=== PATIENT | male | born 1950 | race Caucasian/White ===

== ENCOUNTER 2019-08-26 17:19 | Emergency (ER) | payer MEDICARE, MEDICAID, SELFPAY ==
--- NOTE | ~2019-08-26 | XR_ITS ---
XR femur LT min 2V 08/26/2019 18:05 INDICATION: Left leg pain PROCEDURE: 2 views left femur COMPARISON: No prior studies for comparison. FINDINGS: Fracture, dislocation or subluxation is not identified. The soft tissues appear within norm al limits. No foreign bodies are identified. IMPRESSION: 1: NO ACUTE BONE OR JOINT ABNORMALITY IDENTIFIED. Reviewed, dictated and finalized at location A.
[2019-08-26 17:21] VITALS: BP 145/74; PULSE 88; RESP 18; TEMP 36; O2SAT 99
--- NOTE | 2019-08-26 17:38 | ED.EXTPRO ---
HPI - Extremity Problem General Chief complaint: Extremity Problem,Nontraumatic Stated complaint: knot on left leg Time Seen by Provider: 08/26/19 17:26 Source: patient Mode of arrival: ambulatory Limitations: no limitations History of Present Illness HPI Narrative: This is a 69 year old male that presents to the ER for left leg cramping x 3 days. Reports intermittent cramping and pain in his left thigh. No known injury or trauma. Pain is worse with certain movement. Relieved with rest and stretching. Denies fever, erythema or edema. Related Data Allergies Allergy/AdvReac Type Severity Reaction Status Date / Time No Known Allergies Allergy Verified 07/11/19 13:47 Review of Systems Review of Systems: Narrative: CONSTITUTIONAL: Denies fever SKIN: Denies rash MUSCULOSKELETAL: Reports myalgia. NEUROLOGIC: Denies numbness All systems reviewed & are unremarkable except as noted in HPI and below PMFSH Past Medical History Medical History (Updated 08/26/19 @ 18:20 by Albertina Quintanilla PA-C) No significant past medical history Surgical History Surgical History (Updated 07/11/19 @ 14:34 by Hima Bower) No significant past surgical history Social History Social History (Updated 07/11/19 @ 14:34 by Hima Bower) Smoking status: Never smoker Gender identity (if verbalized by the patient): Male Exam Narrative: Exam Narrative: GENERAL: Well-appearing, well-nourished, and in no acute distress. HEAD: Normocephalic, atraumatic. EYES: EOMI. EXTREMITIES: Normal range of motion. No edema, erythema or warmth. Normal DP pulses SKIN: Warm, dry, no rash. NEURO: No focal deficits. Alert and oriented x3. PSYCH: Normal mood and affect Course Vital Signs Vital signs: Vital Signs Temperature 96.8 F L 08/26/19 17:21 Pulse Rate 88 08/26/19 17:21 Respiratory Rate 18 08/26/19 17:21 Blood Pressure 145/74 H 08/26/19 17:21 Pulse Oximetry 99 08/26/19 17:21 Temperature 96.8 F L 08/26/19 17:21 Pulse Rate 88 08/26/19 17:21 Respiratory Rate 18 08/26/19 17:21 Blood Pressure 145/74 H 08/26/19 17:21 Pulse Oximetry 99 08/26/19 17:21 MDM - Extremity (Nontraumatic) MDM Narrative Medical decision making narrative: Patient presents to the ER for left thigh pain/cramping x 3 days. He is afebrile and nontoxic appearing. No edema, erythema or warmth of the leg. CBC and metabolic panel are normal. Left femur XR is normal. Patient was instructed to rest, use heat, and take over the counter pain medication as needed. He is to follow up with his PCP. Patient was given warnings to return to the ER Lab Data Attestation: I reviewed the patient's lab results. Result diagrams: 08/26/19 17:52 08/26/19 17:52 Labs: Lab Results 08/26/19 08/26/19 Range/Units 17:52 17:52 WBC 7.3 (4.5-10.0) K/mm3 RBC 4.66 (4.6-6.20) M/mm3 Hgb 14.5 (14.0-18.0) g/dL Hct 44.5 (42.0-52.0) % MCV 95.5 (80-100) fl MCH 31.1 (26-34) pg MCHC 32.6 (32-36) g/dl RDW 13.1 (11.5-14.5) % Plt Count 361 (150-375) k/mm3 MPV 10.3 (7.4-10.4) fl Immature Gran % (Auto) 0.3 (0-0.5) % Neut % (Auto) 50.9 (45.5-73.1) % Lymph % (Auto) 38.5 (18.3-44.2) % [place] % (Auto) 7.1 (2.6-8.5) % Eos % (Auto) 2.2 (0-4.4) % Baso % (Auto) 1.0 (0.2-1.2) % Lymph # (Auto) 2.80 (0.9-3.2) K/mm3 [place] # (Auto) 0.5 (0.1-0.6) K/mm3 Eos # (Auto) 0.2 (0-0.3) K/mm3 Baso # (Auto) 0.1 (0.0-0.1) K/mm3 Abs Immat Gran (auto) 0.02 (0.00-0.031) K/mm3 Absolute Neuts (auto) 3.7 (1.3-6.7) K/mm3 Absolute Nucleated RBC 0.0 (0.0-0.012) K/mm3 Nucleated RBC % 0.0 (0.0-0.2) % Sodium 138 (137-145) mmol/L Potassium 3.7 (3.4-5.0) mmol/L Chloride 101 (98-107) mmol/L Carbon Dioxide 29 (22-30) mmol/L BUN 17 (9-20) mg/dL Creatinine 0.90 (0.7-1.3) mg/dL Estim Creat Clear Calc Not Reportable Estimated GFR > 60 (59 - ) Glucose 81 (75-110) m
[2019-08-26 18:01] LABS: Basophils Absolute Auto 0.1 K/mm3 (0.0-0.1); Eosinophils Absolute Auto 0.2 K/mm3 (0-0.3); Eosinophils Percent Auto 2.2 % (0-4.4); Hematocrit 44.5 % (42.0-52.0); Hemoglobin 14.5 g/dL (14.0-18.0); Immature Granulocyte Absolute 0.02 K/mm3 (0.00-0.031); Immature Granulocyte Percent A 0.3 % (0-0.5); Lymphocytes Percent Auto 38.5 % (18.3-44.2); Mean Corpuscular HGB Conc 32.6 g/dl (32-36); Mean Corpuscular Hemoglobin 31.1 pg (26-34); Mean Corpuscular Volume 95.5 fl (80-100); Mean Platelet Volume 10.3 fl (7.4-10.4); Monocytes Absolute Auto 0.5 K/mm3 (0.1-0.6); Monocytes Percent Auto 7.1 % (2.6-8.5); Neutrophils Absolute Auto 3.7 K/mm3 (1.3-6.7); Neutrophils Percent Auto 50.9 % (45.5-73.1); Platelet Count Result 361 k/mm3 (150-375); Red Blood Count 4.66 M/mm3 (4.6-6.20); Red Cell Distribution Width 13.1 % (11.5-14.5); White Blood Count 7.3 K/mm3 (4.5-10.0)
[2019-08-26 18:08] LABS: Blood Urea Nitrogen 17 mg/dL (9-20); Carbon Dioxide 29 mmol/L (22-30); Chloride 101 mmol/L (98-107); Estimated Glomerular Filt Rate > 60; Glucose 81 mg/dL (75-110); Potassium 3.7 mmol/L (3.4-5.0); Sodium 138 mmol/L (137-145)
[2019-08-26 18:44] VITALS: BP 143/79; PULSE 76; RESP 19; TEMP 36.2; O2SAT 100
== END 2019-08-26 18:50 | disposition home or self-care (01) ==
LOC: ANHED 18:28
PROVIDERS: Physician Assistant; Emergency Provider Emergency Medicine
DX: M79.652 Pain in left thigh (principal)
CPT/HCPCS: 36415; 73552; 80048; 85025; 99283

== ENCOUNTER 2020-08-15 15:22 | Emergency (ER) | payer MEDICARE, MEDICAID, SELFPAY ==
[2020-08-15 15:46] VITALS: BP 134/81; PULSE 102; RESP 18; TEMP 36.6; O2SAT 99
[2020-08-15 15:48] VITALS: BP 134/81; PULSE 102; RESP 18; TEMP 36.6; O2SAT 99
--- NOTE | 2020-08-15 16:03 | ED.SKABFB ---
HPI - Skin/Abscess/Foreign Bdy General Chief complaint: Skin/Abscess/Foreign Body Stated complaint: gential rash Source: patient and RN notes reviewed Limitations: no limitations History of Present Illness HPI narrative: The circumcised patient, who is a nondrinker/non-smoker on no meds?yet without a doctor, presents with skin eruption. Patient states he is not sexually active and has a shorter '1 to 2-day' history of pink, only slightly painful, itchy rash on his privates . No fever, dysuria, prior/other rashes; symptoms are moderate to severe seem to begin on the distal, circumsized shaft. There is redness on the whole shaft, and scrotum/ anterior perineum- with advancing pimple border along the left inguinal groin. Patient advised and agrees to go to hospital for further lab testing and treatment. Vital signs remarkable for that he is afebrile, slightly tachycardic P = 102, and he has not eaten today yet. Related Data Home Medications Medication Instructions Recorded Confirmed No Home Medications 08/15/20 08/16/20 Allergies Allergy/AdvReac Type Severity Reaction Status Date / Time No Known Allergies Allergy Verified 08/16/20 06:56 Review of Systems Review of Systems: Narrative: General/Constitutional: No weight loss,fever Eyes: N0: Redness,discharge Ears/Nose/Throat: No: Epistaxis,ear discharge Respiratory: Denies: Hemoptysis Gastrointestinal: No Vomiting, Bleeding-rectal Skin: No Lumps, REPORTS eruption Neurologic: No Focal Weakness,Sz Hematologic: Denies: Petechiae/Purpura Psychiatric: No: Suicida ideationl All Other Systems: Reviewed and Negative [facility] Past Medical History Medical History No significant past medical history Surgical History Surgical History No significant past surgical history Family History Family History Mother Diabetes mellitus Father Heart disease Sibling Cancer Social History Social History (Updated 07/11/19 @ 14:34 by Hima Bower) Smoking status: Former smoker Alcohol intake: former Substance use: never Gender identity (if verbalized by the patient): Male Spiritual care concerns: No Exam Narrative: Exam Narrative: General Appearance: Aged appearing, No distress Conjunctiva clear Ears: External ear normal Nose: Normal nose Mouth/Throat: Normal appearing, Normal lips Neck: Supple Respiratory: Airway patent, No respiratory distress Abdomen: Soft, Non-tender, No massess, No organomegaly : Bilateral descended testicles, circumcised phallus, diffuse redness of the entire penis,scrotum with advancing vesicular border left inguinal area Skin: Warm, Dry; penile cellulitis with area of maceration and discharge on the left distal shaft/proximal sulcus Musculoskeletal: Full ROM Neurological: A&O x3, CN II-X intact Psychiatric: Normal mood, Normal affect Course Course Emergency Course: MDM Med Decision Making DATA REVIEWED LAB: ordered & reviewed PMH RECORDS: reviewed DISCUSSED: with another provider TEST : personally over-read RISKS of M &M CC/PROBLEM severe PROCEDURE low Tx OPTIONS Vital Signs Vital signs: Vital Signs Temperature 97.9 F 08/15/20 15:46 Pulse Rate 102 H 08/15/20 15:46 Respiratory Rate 18 08/15/20 15:46 Blood Pressure 134/81 08/15/20 15:46 Pulse Oximetry 99 08/15/20 15:46 Temperature 97.9 F 08/15/20 15:48 Pulse Rate 102 H 08/15/20 15:48 Respiratory Rate 18 08/15/20 15:48 Blood Pressure 134/81 08/15/20 15:48 Pulse Oximetry 99 08/15/20 15:48 Discharge Plan Discharge Clinic
[2020-08-15] MEDS: cefTRIAXone 1 GM VIAL 0.75 GM IM (16:21)
[2020-08-15] MEDS: LIDOCAINE HCL 1% LOCAL INJ 20 ML VIAL IM (16:22)
== END 2020-08-15 16:44 | disposition home or self-care (01) ==
PROVIDERS: Emergency Provider Emergency Medicine
DX: N48.22 Cellulitis of corpus cavernosum and penis (principal); E86.0 Dehydration; Z87.891 Personal history of nicotine dependence
CPT/HCPCS: 87070; 87205; 87255; 96372; 99213; G0463; J0696

== ENCOUNTER 2020-08-15 17:03 | Observation (INO) | payer MEDICARE, MEDICAID, SELFPAY ==
--- NOTE | ~2020-08-15 | CT_ITS ---
EXAMINATION: CT pelvis w con INDICATION: Scrotal cellulitis TECHNIQUE: Computed tomographic images of the pelvis were obtained after the administration of 100 cc of Omnipaque 350 intravenous contrast. The dose-length product (DLP) was 253.30 mGy-cm. Automated ex posure control and iterative reconstruction technique were employed. COMPARISON: None FINDINGS: There is a 2.6 cm cystic area in the right scrotum which could reflect an epididymal cyst o r spermatocele. There appears to be mild soft tissues thickening of the perineum and scrotum. There a re no pathologically enlarged pelvic lymph nodes. Colonic diverticulosis is present without evidence of diverticulitis. There is no free intraperitoneal gas or evidence of bowel obstruction. Bone island s are noted in the right femoral head. IMPRESSION: 1. Mild skin thickening of the scrotum and perineum, likely cellulitis. 2. Cystic area of the right scrotum, likely an epididymal cyst or spermatocele. Reviewed, dictated and finalized at location A. OGRAPHIC ARTIST
[2020-08-15 18:12] VITALS: BP 128/78; PULSE 105; RESP 18; TEMP 36.2; O2SAT 99
--- NOTE | 2020-08-15 18:36 | ED.GENADULT ---
HPI - General Adult General Chief complaint: Skin/Abscess/Foreign Body Stated complaint: scrotal cellulitis Time Seen by Provider: 08/15/20 18:27 History of Present Illness HPI narrative: Patient is a 70-year-old male who presents ER with possible infection to his penis and scrotum. Patient reports he looked down today and discovered that his penis was red and had some drainage. He has been applying some pump lotion to the area. He has not seen a doctor in many years and opted to go to an urgent care. Urgent care performed a swab and sent him here due to concern for cellulitis. Patient has no dysuria or urinary frequency or urgency. He denies any prodrome of itching or scratching or burning prior to development of this rash. Rash seems to encompass the entirety of the phallus and scrotum as well as into the left inguinal fold. Does not seem to track back towards his rectum he has no pain around his rectum or perineum. He has no known history of diabetes. Related Data Allergies Allergy/AdvReac Type Severity Reaction Status Date / Time No Known Allergies Allergy Verified 08/16/20 06:56 Review of Systems Review of Systems: All systems reviewed & are unremarkable except as noted in HPI and below Constitutional: Constitutional: Denies chills, Denies fever(s) and Denies weakness Gastrointestinal: Gastrointestinal: Denies abdominal pain, Denies diarrhea, Denies nausea and Denies vomiting Genitourinary: Genitourinary: Denies hematuria, Reports genital lesions, Denies dysuria, Denies penile discharge, Denies testicular pain and Denies urinary frequency PMFSH Past Medical History Medical History No significant past medical history Surgical History Surgical History No significant past surgical history Family History Family History Mother Diabetes mellitus Father Heart disease Sibling Cancer Social History Social History Smoking status: Former smoker Alcohol intake: former Substance use: never Gender identity (if verbalized by the patient): Male Spiritual care concerns: No Exam Narrative: Exam Narrative: GENERAL: Well-appearing, well-nourished, and in no acute distress. HEAD: Normocephalic, atraumatic. CHEST: Clear to auscultation. No respiratory distress. HEART: Regular rate and rhythm. Normal peripheral pulses. ABDOMEN: Soft, nontender, nondistended. : External genitalia is erythematous in appearance but nontender. There seems to be adherent mucus around the glans and also into the left inguinal region. Left inguinal region seems to have the appearance of a yeast type rash without vesicles or pustules. There is a pattern of rubbing noted to the rash. Right side seems to be spared with exception of the few irritated hair follicles. Perineum normal in appearance and nontender. No tenderness or erythema at the rectum. EXTREMITIES: Normal range of motion. No edema. SKIN: Warm, dry, no rash with exception of exam. NEURO: Alert and oriented x3. Course Course Emergency Course: Admit to hospitalist service. Antibiotics ordered. Vital Signs Vital signs: Vital Signs Temperature 97.1 F L 08/15/20 18:12 Pulse Rate 105 H 08/15/20 18:12 Respiratory Rate 18 08/15/20 18:12 Blood Pressure 128/78 08/15/20 18:12 Pulse Oximetry 99 08/15/20 18:12 Temperature 97.6 F 08/16/20 05:03 Pulse Rate 61 08/16/20 05:03 Respiratory Rate 20 08/16/20 05:03 Blood Pressure 122/65 08/16/20 05:03 Pulse Oximetry 97 08/16/20 05:03 Medical Decision Making Vital Signs Vital Signs: Vital Signs Temperature 97.1 F L 08/15/20 18:12 Pulse Rate 105 H 08/15/20 18:12 Respiratory Rate 18 08/15/20 18:12 Blood Pressure 128/78 08/15/20 18:12 Pulse Oximetry 99
[2020-08-15 19:42] VITALS: BP 128/76; PULSE 87; RESP 20; O2SAT 97
[2020-08-15 19:47] LABS: Basophils Absolute Auto 0.1 K/mm3 (0.0-0.1); Basophils Percent Auto 0.7 % (0.2-1.2); Eosinophils Percent Auto 0.1 % (0-4.4); Hematocrit 45.9 % (42.0-52.0); Hemoglobin 15.4 g/dL (14.0-18.0); Immature Granulocyte Absolute 0.03 K/mm3 (0.00-0.031); Immature Granulocyte Percent A 0.3 % (0-0.5); Lymphocytes Absolute Auto 2.13 K/mm3 (0.9-3.2); Lymphocytes Percent Auto 18.7 % (18.3-44.2); Mean Corpuscular HGB Conc 33.6 g/dl (32-36); Mean Corpuscular Hemoglobin 31.7 pg (26-34); Mean Corpuscular Volume 94.4 fl (80-100); Mean Platelet Volume 10.2 fl (7.4-10.4); Monocytes Absolute Auto 0.7 K/mm3 (0.1-0.6); Neutrophils Absolute Auto 8.5 K/mm3 (1.3-6.7); Neutrophils Percent Auto 74.2 % (45.5-73.1); Platelet Count Result 319 k/mm3 (150-375); Red Blood Count 4.86 M/mm3 (4.6-6.20); White Blood Count 11.4 K/mm3 (4.5-10.0)
[2020-08-15 19:50] LABS: Add Urine Microscopic? YES; Appearance Urine Cloudy (Clear); Bilirubin Urine Negative (Negative); Blood Urine Negative (Negative); Color Urine Amber (Yellow); Glucose Urine UA Negative (Negative); Hyaline Casts Urine 30-49 /lpf; Ketones Urine Trace mg/dL (Negative); Leukocyte Esterase Ur Trace LEU/UL (Negative); Mucus Urine Heavy /lpf; Nitrate Urine Negative (Negative); Protein Urine 2+ mg/dL (Negative); RBC Urine 0-2 /hpf (0-2); Specific Grav Ur 1.023 (1.001-1.035); Squamous Epithelial Cell Urine Rare /hpf (Few)
[2020-08-15 19:58] LABS: Partial Thromboplastin Time 24.4 SECONDS (22.3-36.8); Prothrombin Time 13.4 Seconds (11.1-14.7)
[2020-08-15 20:00] LABS: Alanine Aminotransferase 12 U/L (4-50); Albumin Level 4.7 g/dL (3.5-5.1); Alkaline Phosphatase 120 U/L (38-126); Anion Gap 8 mmol/L (8-16); Aspartate Amino Transferase 30 U/L (17-59); Bilirubin,Total 0.8 mg/dL (0.2-1.3); Blood Urea Nitrogen 23 mg/dL (9-20); Calcium 9.7 mg/dL (8.4-10.2); Carbon Dioxide 28 mmol/L (22-30); Chloride 105 mmol/L (98-107); Estimated CRCL calculation 34 ml/min; Estimated Glomerular Filt Rate 40; Glucose 98 mg/dL (75-110); Potassium 4.2 mmol/L (3.4-5.0); Sodium 141 mmol/L (137-145)
[2020-08-15 21:12] VITALS: BP 139/77; PULSE 87; RESP 18; O2SAT 98
[2020-08-15] MEDS: SODIUM CHLORIDE 0.9% IV 1,000 ML 999 ML IV CONT (21:12)
[2020-08-15 22:58] VITALS: BP 125/80; PULSE 75; RESP 18; O2SAT 97
--- NOTE | 2020-08-15 23:08 | PM.IMHP ---
H&P: HPI History of Present Illness Date/Time: 08/15/20 23:08 Chief Complaint: sore on the penis Narrative: Cecilio Silverio is a 70 year old male who takes no medications or has any past medical history. The patient stated have some discomfort in his penis today. He stated that he has never been or had any children. He stated he has never been sexually active. The patient asked a family friend to take him to the drugstore so he can get some cream for his penis. It felt very dry so he put some lotion to that area. He has not seen a doctor in many years. He denies any difficulty urinating but noticed drainage from his penis around the meatus. He has no pain to his rectum or perineal area. No history of diabetes. His family friend talked him into going to the urgent care and they referred him to the ER. He denies any injury or trauma to his penis. His external genitalia has erythemia and drainage. Left inguinal area peers to have yeastlike rash. The patient was started on Ancef for cellulitis. (balanitis). The CT scan of the pelvis was read as1. Mild skin thickening of the scrotum and perineum, likely cellulitis. 2. Cystic area of the right scrotum, likely an epididymal cyst or spermatocele. The patient is being admitted to observation. Date of service is 08/15/2020 Review of Systems Review of Systems: All systems reviewed & are unremarkable except as noted in HPI and below Constitutional: Constitutional: Reports as per HPI and Reports no additional constitutional complaints Eyes: Eyes: Reports as per HPI and Reports no additional eye complaints ENT: Reports system reviewed and no additional complaints, except as documented and Reports Normal hearing present Cardiovascular: Cardiovascular: Reports no additional cardiovascular complaints Respiratory: Respiratory: Reports no additional respiratory complaints and Reports no additional respiratory complaints Gastrointestinal: Gastrointestinal: Reports as per HPI and Reports no additional gastrointestinal complaints Musculoskeletal: Musculoskeletal: Reports no additional musculoskeletal complaints Integumentary/Breasts: Skin/Breast: Reports system reviewed and no additional complaints, except as docu and Reports as per HPI Neurologic: Reports system reviewed and no additional complaints, except as documented, Reports as per HPI and Reports Normal hearing present Psychiatric: Psychiatric: Reports no additional psychiatric complaints and Reports as per HPI Endocrine: Endocrine: Reports no additional endocrine complaints Hematologic/Lymphatic: Hematologic/Lymphatic: Reports no additional hematologic/lymphatic complaints Allergic/Immunologic: Allergic/Immunologic: Reports no additional allergic/immunologic complaints [facility] Past Medical History Medical History No significant past medical history Surgical History Surgical History No significant past surgical history Family History Family History (Updated 08/15/20 @ 23:19 by Alejandrina Campos NP) Mother Diabetes mellitus Father Heart disease Sibling Cancer Social History Social History (Updated 07/11/19 @ 14:34 by Hima Bower) Smoking status: Never smoker Gender identity (if verbalized by the patient): Male Meds Home Medications and Allergies Home Medications Medication Instructions Recorded Confirmed Type No Home Medications 08/15/20 08/15/20 History Allergies Allergy/AdvReac Type Severity Reaction Status Date / Time No Known Allergies Allergy Verified 08/15/20 15:47 Vital Signs Vital Signs - 24 hr 08/15/20 18:12 08/15/20 19:42 08/15/20 21:12 Temperature 36.2 C L Pulse Rate 105 H 87 87 Respiratory Rate 18 20 18 Blood Pressure 128/78 128/76 139/77 Pulse Oximetry 99 97 98 08/15/20 22:58 Temperature Pulse Rate 75 Respiratory Rate 18 Blood Pressure
--- NOTE | 2020-08-15 23:37 | ADMGEN ---
This patient, Cecilio Silverio, was admitted to Medical Room 250-01. Patient/family oriented to hospital policies and general routines including ID bracelet, bed and alarms, visiting hours, pain management, procedures, bathroom and other care routines, personal items, smoking policy, room service/diet, and visiting hours. Information on how to activate the Rapid Response Team has been discussed. Patient/Family are encouraged to report perceived risks to care and to ask questions if they do not understand what they are told or what they should do.
[2020-08-15 23:39] VITALS: BMI 27.9
[2020-08-15 23:40] VITALS: BP 143/54; PULSE 68; RESP 18; TEMP 36.1; O2SAT 97
[2020-08-15] MEDS: SODIUM CHLORIDE 0.9% IV 1,000 ML 125 ML IV CONT (23:49)
[2020-08-16] MEDS: HYDROcodone/acetaminophen (*CRX) 5-325 MG TABLET 1 TAB PO ×2 (00:26→08:48)
[2020-08-16 05:03] VITALS: BP 122/65; PULSE 61; RESP 20; TEMP 36.4; O2SAT 97
[2020-08-16 05:40] LABS: Basophils Absolute Auto 0.1 K/mm3 (0.0-0.1); Basophils Percent Auto 0.8 % (0.2-1.2); Eosinophils Absolute Auto 0.2 K/mm3 (0-0.3); Eosinophils Percent Auto 1.5 % (0-4.4); Hematocrit 43.5 % (42.0-52.0); Hemoglobin 14.3 g/dL (14.0-18.0); Immature Granulocyte Absolute 0.04 K/mm3 (0.00-0.031); Immature Granulocyte Percent A 0.4 % (0-0.5); Lymphocytes Absolute Auto 3.66 K/mm3 (0.9-3.2); Lymphocytes Percent Auto 36.2 % (18.3-44.2); Mean Corpuscular HGB Conc 32.9 g/dl (32-36); Mean Corpuscular Hemoglobin 31.4 pg (26-34); Mean Corpuscular Volume 95.4 fl (80-100); Mean Platelet Volume 10.4 fl (7.4-10.4); Monocytes Absolute Auto 0.9 K/mm3 (0.1-0.6); Monocytes Percent Auto 8.8 % (2.6-8.5); Neutrophils Absolute Auto 5.3 K/mm3 (1.3-6.7); Neutrophils Percent Auto 52.3 % (45.5-73.1); Platelet Count Result 319 k/mm3 (150-375); Red Blood Count 4.56 M/mm3 (4.6-6.20); Red Cell Distribution Width 13.1 % (11.5-14.5); White Blood Count 10.1 K/mm3 (4.5-10.0)
[2020-08-16 06:01] LABS: Alanine Aminotransferase 10 U/L (4-50); Albumin Level 3.8 g/dL (3.5-5.1); Alkaline Phosphatase 92 U/L (38-126); Anion Gap 5 mmol/L (8-16); Aspartate Amino Transferase 21 U/L (17-59); Bilirubin,Total 0.6 mg/dL (0.2-1.3); Blood Urea Nitrogen 25 mg/dL (9-20); Calcium 8.6 mg/dL (8.4-10.2); Carbon Dioxide 27 mmol/L (22-30); Chloride 109 mmol/L (98-107); Estimated CRCL calculation 38 ml/min; Estimated Glomerular Filt Rate 55; Glucose 81 mg/dL (75-110); Magnesium 1.8 mg/dL (1.6-2.3); Potassium 3.9 mmol/L (3.4-5.0); Sodium 141 mmol/L (137-145)
[2020-08-16] MEDS: SODIUM CHLORIDE 0.9% IV 1,000 ML 125 ML IV CONT (08:48)
[2020-08-16] MEDS: TOLNAFTATE 1% POWDER 45 GM BTL 1 APPLIC TOPICAL (08:49)
[2020-08-16] MEDS: ENOXAPARIN 40 MG/0.4 ML SYRINGE SUB-Q (08:49)
--- NOTE | 2020-08-16 09:42 | WPDURCON ---
Assessment and Plan Assessment and plan (1) Cellulitis, scrotum: Code(s): N49.2 - Inflammatory disorders of scrotum Status: Acute Assessment and Plan: Mild genital cellulitis - improved overnight. Discharge on Keflex x10 days is fine with me. F/U with his newly recommended PCP. Urology Consult Note HPI Date Seen: 08/16/20 Requesting Physician: Maryjo Victoria PA-C Primary Care Provider: QUALITY IMPROVEMENT COORDINATOR (RN) PHYSICIAN Consult Narrative Narrative: Cecilio Silverio is a 70 year old male without prior urological history who has actually not seen any physicians for many years. He presents to the ER with a 2 to three-day history genital discomfort and mild swelling. Examination in the ER was consistent with genital cellulitis. He was admitted and apparently started on Ancef IV. Overnight his discomfort and swelling have improved significantly. Review of Systems Cardiovascular: Cardiovascular: Denies chest pain, Denies lightheadedness, Denies palpitations and Denies dyspnea Respiratory: Respiratory: Denies dyspnea Gastrointestinal: Gastrointestinal: Denies diarrhea, Denies nausea and Denies vomiting Genitourinary: Genitourinary: Denies hematuria and Denies dysuria Endocrine: Endocrine: Denies palpitations PMFSH Past Medical History Medical History No significant past medical history Surgical History Surgical History No significant past surgical history Family History Family History Mother Diabetes mellitus Father Heart disease Sibling Cancer Social History Social History Smoking status: Former smoker Alcohol intake: former Substance use: never Gender identity (if verbalized by the patient): Male Spiritual care concerns: No Meds Home Medications and Allergies Home Medications Medication Instructions Recorded Confirmed Type No Home Medications 08/15/20 08/16/20 History Allergies Allergy/AdvReac Type Severity Reaction Status Date / Time No Known Allergies Allergy Verified 08/16/20 06:56 Vital Signs Vital Signs - 24 hr 08/15/20 18:12 08/15/20 19:42 08/15/20 21:12 Temperature 97.1 F L Pulse Rate 105 H 87 87 Respiratory Rate 18 20 18 Blood Pressure 128/78 128/76 139/77 Pulse Oximetry 99 97 98 08/15/20 22:58 08/15/20 23:40 08/16/20 05:03 Temperature 96.9 F L 97.6 F Pulse Rate 75 68 61 Respiratory Rate 18 18 20 Blood Pressure 125/80 143/54 H 122/65 Pulse Oximetry 97 97 97 Exam Const: General: no acute distress Resp: Effort & Inspection: normal respiratory effort GI: Inspection: non-distended GI Palp: No abdominal tenderness and No Guarding due to palpation present (GI) Auscultation: normal bowel sounds : Penis: Yes circumcised and Yes other (mild swelling and errythema) Scrotum: other (mild swelling and errythema) Results Labs CBC & Chem 7: 08/16/20 05:15 08/16/20 05:15 Labs: Short CBC 08/15/20 08/16/20 Range/Units 19:40 05:15 WBC 11.4 H 10.1 H (4.5-10.0) K/mm3 Hgb 15.4 14.3 (14.0-18.0) g/dL Hct 45.9 43.5 (42.0-52.0) % Plt Count 319 319 (150-375) k/mm3 BMP 08/15/20 08/16/20 19:40 05:15 Sodium 141 141 Potassium 4.2 3.9 Chloride 105 109 H Carbon Dioxide 28 27 BUN 23 H 25 H Creatinine 1.70 H 1.30 Glucose 98 81 Calcium 9.7 8.6 Liver Function 08/15/20 08/16/20 Range/Units 19:40 05:15 Total Bilirubin 0.8 0.6 (0.2-1.3) mg/dL AST 30 21 (17-59) U/L ALT 12 10 (4-50) U/L Alkaline Phosphatase 120 92 (38-126) U/L Albumin 4.7 3.8 (3.5-5.1) g/dL Urine 08/15/20 Range/Units 19:40 Urine Color [place] (Yellow) Urine Appearance Cloudy H (Clear) Urine pH 5.0 (5.0-9.0) Ur Specific [place] 1.023
--- NOTE | 2020-08-16 13:23 | PM.DS ---
DS: Admitting Diagnosis Admitting Diagnosis Admitting Diagnosis: cellulitis DS: Discharge Diagnosis Discharge Diagnosis (1) Cellulitis, scrotum: Code(s): N49.2 - Inflammatory disorders of scrotum Status: Acute Assessment and Plan: he noticed some redness and discomfort of his penis and scrotum for about 2-3 days. No penile discharge. He was found to have an erythematous and slightly edematous penis and scrotum. He had mild leukocytosis upon presentation, but was afebrile. He was started on IV Ancef. He was seen in consultation by Urology who recommended p.o. Keflex times 10 days. Preliminary cultures of scrotal wound showed no microorganisms or white blood cells. Preliminary blood cultures showed no growth to date. Urine cultures negative. Final cultures will be monitored. continue with p.o. Keflex. (2) Balanitis: Code(s): N48.1 - Balanitis Status: Acute Assessment and Plan: Plan as above. (3) Needs assistance while at home: Code(s): Z74.2 - Need for assistance at home and no other household member able to render care Status: Acute Assessment and Plan: Patient is unable to read or write. He does not drive. He has a friend who assists him at home and helps him get to appointments, etc. She was present during his hospitalization and I discussed with her regarding the patient's medications, as well as worrisome signs and symptoms for which to return. She reports she will assist with making sure he is taking his medications appropriately. She will also be assisting him to establish care with a primary care physician. List of PCPs provided. DS: Summary Hospital Course Reason for hospitalization: Genital cellulitis Hospital Course: date of admission: 08/15/2020 date of discharge: 08/16/2020 Cecilio Silverio is a healthy 70-year-old male who reports no significant medical history, although he has not had medical evaluation several years, who presented to the emergency department on 08/15/2020 at the direction of urgent care staff for concerns of genital cellulitis. He had redness and erythema of his penis and scrotum that had been on about 2-3 days prior to presentation. Upon presentation to the emergency department, was mildly tachycardic with additional vital signs stable, WBC 11.4,, urinalysis with only trace leukocyte esterase BUN and creatinine slightly elevated with additional electrolytes stable, lactic acid 1.0. he was admitted to the hospitalist service for further evaluation and management was seen in consultation by Urology. Please see above for further details. He was treated with IV antibiotics and will continue a course of p.o. antibiotics for genital cellulitis. He will need to follow-up with primary care provider in 1-2 weeks to ensure resolution of infection. He was provided with information for status with a primary care provider and had already been in contact with an office to schedule an appointment. given his overall improvement, he was determined to no longer require inpatient care and was felt to be stable for discharge. We discussed worrisome signs and symptoms for which to return and he was educated on his medications, in addition to his friend who assists him. He was discharged in hemodynamically stable condition on 08/16/2020. Status at Discharge Functional status at discharge: independent ambulation Overall status at discharge: patient is back to baseline Time Spent with Patient Time attestation: Total time spent providing and/or coordinating discharge services: 45 minutes Time spent: Greater than 30 minutes Exam Narrative: Exam Narrative: Mr. Silverio is a well-nourished, well-appearing 70 year-old male who is lying semi recumbent in bed. he appears comfortable and is in NARD. Neuro: awake, alert and oriented x3, speech clear, no focal neuro deficits noted HEENMT: normocephalic, atraumatic, EOMI, sclerae anicteric, m
== END 2020-08-16 14:34 | disposition home or self-care (01) ==
LOC: ANHED 18:33 → ANH2MED 08-16 02:24
PROVIDERS: Emergency Medicine; Nurse Practitioner; Admitting Provider Family Medicine; Emergency Provider Emergency Medicine; Visit Provider Internal Medicine
DX: N49.2 Inflammatory disorders of scrotum (principal); Z87.891 Personal history of nicotine dependence; Z74.2 Need for assistance at home and no other household member able to render care; Z23 Encounter for immunization
CPT/HCPCS: 36415; 72193; 80053; 81001; 83605; 83735; 85025; 85610; 85730; 87040; 87070; 87086; 87205; 87255; 90471; 90653; 96361; 96365; 96366; 96372; 96376; 99285; A9270; G0008; G0378; J0690; J0696; J1650; J7030; Q9967

== ENCOUNTER 2020-08-23 08:50 | Outpatient (CLI) | payer MEDICARE, MEDICAID, SELFPAY ==
[2020-08-23 09:23] LABS: Basophils Absolute Auto 0.1 K/mm3 (0.0-0.1); Basophils Percent Auto 1.2 % (0.2-1.2); Eosinophils Absolute Auto 0.1 K/mm3 (0-0.3); Eosinophils Percent Auto 1.9 % (0-4.4); Hematocrit 43.1 % (42.0-52.0); Hemoglobin 14.4 g/dL (14.0-18.0); Immature Granulocyte Absolute 0.02 K/mm3 (0.00-0.031); Immature Granulocyte Percent A 0.3 % (0-0.5); Lymphocytes Absolute Auto 2.54 K/mm3 (0.9-3.2); Lymphocytes Percent Auto 34.8 % (18.3-44.2); Mean Corpuscular HGB Conc 33.4 g/dl (32-36); Mean Corpuscular Hemoglobin 31.6 pg (26-34); Mean Corpuscular Volume 94.7 fl (80-100); Mean Platelet Volume 10.3 fl (7.4-10.4); Monocytes Absolute Auto 0.4 K/mm3 (0.1-0.6); Monocytes Percent Auto 5.9 % (2.6-8.5); Neutrophils Absolute Auto 4.1 K/mm3 (1.3-6.7); Neutrophils Percent Auto 55.9 % (45.5-73.1); Platelet Count Result 396 k/mm3 (150-375); Red Blood Count 4.55 M/mm3 (4.6-6.20); Red Cell Distribution Width 13.1 % (11.5-14.5); White Blood Count 7.3 K/mm3 (4.5-10.0)
[2020-08-23 09:36] LABS: Anion Gap 5 mmol/L (8-16); Blood Urea Nitrogen 18 mg/dL (9-20); Calcium 9.1 mg/dL (8.4-10.2); Carbon Dioxide 31 mmol/L (22-30); Chloride 102 mmol/L (98-107); Cholesterol 183 mg/dL (0-200); Estimated Glomerular Filt Rate > 60; Glucose 90 mg/dL (75-110); HDL Direct 47 mg/dL; Potassium 4.3 mmol/L (3.4-5.0); Sodium 138 mmol/L (137-145); Triglycerides 108 mg/dL (<150)
[2020-08-23 09:49] LABS: LDL Cholesterol Direct 112 mg/dL
[2020-08-23 10:08] LABS: Prostate Specific Antigen 2.4 ng/mL (< OR = 4.0); Total Triiodothyronine (T3) 1.05 NG/ML (0.97-1.69)
[2020-08-23 10:31] LABS: Free T4 Free Thyroxine 0.82 ng/mL (0.78-2.19); Vitamin D 25 Hydroxy 34.9 ng/mL
== END 2020-08-23 08:51 | disposition home or self-care (01) ==
LOC: ANHLAB 09:02
PROVIDERS: PCP Nurse Practitioner; Visit Provider Nurse Practitioner
DX: Z79.899 Other long term (current) drug therapy (principal); Z12.5 Encounter for screening for malignant neoplasm of prostate; E55.9 Vitamin D deficiency, unspecified
CPT/HCPCS: 36415; 80048; 80061; 82306; 84153; 84439; 84443; 84480; 85025; G0103

== ENCOUNTER → 2020-10-20 01:44 | Outpatient (CLI) | payer MEDICARE, MEDICAID, SELFPAY ==
[2020-10-21 14:53] LABS: SARS-CoV-2 RNA PCR Negative
== END ==
PROVIDERS: PCP Nurse Practitioner; Visit Provider Internal Medicine Gastroenterology
DX: Z01.812 Encounter for preprocedural laboratory examination (principal); Z20.822 Contact with and (suspected) exposure to COVID-19
CPT/HCPCS: C9803; U0003; U0005

== ENCOUNTER 2020-10-24 01:03 | Day surgery (SDC) | payer MEDICARE, MEDICAID, SELFPAY ==
[2020-10-18 10:05] VITALS: BMI 24.1
--- NOTE | 2020-10-18 10:22 | PC.NURSE ---
10/18/2020 0945: CALLED PT FOR PRE-OP PHONE CALL. PT UNABLE TO COMPREHEND, READ, OR WRITE. PT AT FRIEND MEÑO'S HOUSE AND PT GAVE PERMISSION TO SPEAK WITH MEÑO IN REGARDS TO ALL INFORMATION AND MEDICAL HISTORY. MEÑO STATES SHE HELPS PT AND TAKES CARE OF ALL HIS MEDICAL ASSISTANCE. MEÑO HOME # [phone], CELL # [phone]. MEÑO AND PT UNSURE OF ALL MEDICAL HISTORY BUT SOME PROVIDED. ALL INSTRUCTIONS GIVEN AND MEÑO STATES UNDERSTANDING.
[2020-10-24 09:51] VITALS: BP 138/69; PULSE 67; RESP 14; TEMP 36.9; O2SAT 99; BMI 24.3
[2020-10-24 09:55] VITALS: BP 138/69; PULSE 67; RESP 14; TEMP 36.9; O2SAT 99
[2020-10-24] MEDS: LACTATED RINGERS 1,000 ML 150 ML IV CONT (10:06)
--- NOTE | 2020-10-24 10:13 | WPDANESEPPF ---
Anes - Initial Pre Proc Eval Procedure: Operation Date: 10/24/20 11:00 Proposed Procedures p Screening Colonoscopy - Dipak Goldstein MD Date/Time: 10/24/20 10:13 Surgeon: Dipak Goldstein MD Pre Op Diagnosis: neoplasm screening Patient Data Age: 70 Gender: M Height: 5 ft 7 in Weight: 70.6 kg Last Vital Signs Temp 98.4 F 10/24/20 09:55 Pulse 67 10/24/20 09:55 Resp 14 10/24/20 09:55 BP 138/69 10/24/20 09:55 Pulse Ox 99 10/24/20 09:55 Allergies Allergy/AdvReac Type Severity Reaction Status Date / Time No Known Allergies Allergy Verified 10/24/20 09:50 Home Medications Medication Instructions Recorded Confirmed Type No Home Medications 10/18/20 10/24/20 History Patient hx anesthesia problems: none Family hx anesthesia problems: none PMFSH Past Medical History Medical History Anxiety Needs assistance while at home Surgical History Surgical History No significant past surgical history Family History Family History Mother Diabetes mellitus Father Heart disease Sibling Cancer Social History Social History Smoking status: Former smoker Additional smoking assessment comments: PT UNSURE WHEN HE QUIT OR HOW LONG OR HOW MUCH Alcohol intake: never Substance use: never Substance use type: does not use Living arrangements: alone Additional living arrangements comments: FRIEND MEÑO LIVES CLOSE AND HELPS OUT NEEDED BUT PT CAN LIVE ON HIS OWN Gender identity (if verbalized by the patient): Male Spiritual care concerns: No Anes - Eval Final PreProcedure Day of Procedure 10/24/20 10:13 Patient weight: normal Heart: regular rate and rhythm Lungs: clear to auscultation Airway: Mallampati scale class II Neurological: alert and oriented Last oral intake: >/= 8 hours ASA classification: II Emergent: no Anesthetic plan: proceed Anesthesia type and monitoring: general GIVS and standard monitoring Informed Consent: The patient's anesthetic plan and its attendant risks and benefits were discussed with the patient/family/POA. Questions were solicited and answers provided to the satisfaction of the patient/family/POA.
--- NOTE | 2020-10-24 10:26 | PM.HPGS ---
History of Present Illness History of Present Illness Consent: Risks, benefits, and alternatives have been discussed and questions answered. Patient agrees to proceed with procedure. Chief complaint: neoplasm screening Narrative: Cecilio Silverio is a 70 year old male here for first screening colonoscopy Review of Systems Constitutional: Constitutional: Denies headache(s) and Denies weakness Eyes: Eyes: Denies blurry vision ENT: Reports Normal hearing present, Denies headache(s) and Denies neck pain Cardiovascular: Cardiovascular: Denies chest pain and Denies dyspnea Respiratory: Respiratory: Denies dyspnea Gastrointestinal: Gastrointestinal: Reports no additional gastrointestinal complaints Genitourinary: Genitourinary: Denies dysuria Musculoskeletal: Musculoskeletal: Denies neck pain Integumentary/Breasts: Skin/Breast: Denies dry skin Neurologic: Reports Normal hearing present, Denies headache(s) and Denies weakness Psychiatric: Psychiatric: Denies anxiety Endocrine: Endocrine: Denies change in body appearance Hematologic/Lymphatic: Hematologic/Lymphatic: Denies easy bleeding Allergic/Immunologic: Allergic/Immunologic: Denies urticaria PMFSH Past Medical History Medical History Anxiety Colon cancer screening Needs assistance while at home Surgical History Surgical History No significant past surgical history Family History Family History Mother Diabetes mellitus Father Heart disease Sibling Cancer Social History Social History Smoking status: Former smoker Additional smoking assessment comments: PT UNSURE WHEN HE QUIT OR HOW LONG OR HOW MUCH Alcohol intake: never Substance use: never Substance use type: does not use Living arrangements: alone Additional living arrangements comments: FRIEND MEÑO LIVES CLOSE AND HELPS OUT NEEDED BUT PT CAN LIVE ON HIS OWN Gender identity (if verbalized by the patient): Male Spiritual care concerns: No Meds Home Medications and Allergies Home Medications Medication Instructions Recorded Confirmed Type No Home Medications 10/18/20 10/24/20 History Allergies Allergy/AdvReac Type Severity Reaction Status Date / Time No Known Allergies Allergy Verified 10/24/20 09:50 Vital Signs Vital Signs - 24 hr 10/24/20 09:51 10/24/20 09:55 Temperature 98.4 F 98.4 F Pulse Rate 67 67 Respiratory Rate 14 14 Blood Pressure 138/69 138/69 Pulse Oximetry 99 99 Exam Const: General: comfortable and no acute distress HENMT: General nose exam: Normal nares present Eyes: General: appearance normal, both eyes and all related structures Neck: Neck: no JVD Resp: Auscultation: clear to auscultation bilaterally Cardio: Rate: regular rate Rhythm: regular rhythm GI: Inspection: non-distended GI Palp: Yes Soft to palpation Skin: General skin exam: normal color Neuro: General: gait normal Speech: normal speech Extrem: General: normal to inspection Psych: Mental Status: mental status grossly normal Assessment and Plan Assessment and plan (1) Colon cancer screening: Code(s): Z12.11 - Encounter for screening for malignant neoplasm of colon Status: Acute Assessment and Plan: colonoscopy
[2020-10-24 11:09] VITALS: BP 111/64; PULSE 60; RESP 16; O2SAT 100
[2020-10-24 11:19] VITALS: BP 125/79; PULSE 62; RESP 20; O2SAT 100
[2020-10-24 11:29] VITALS: BP 145/81; PULSE 64; RESP 18; O2SAT 100
== END 2020-10-24 11:45 | disposition home or self-care (01) ==
PROVIDERS: PCP Nurse Practitioner; Visit Provider Internal Medicine Gastroenterology
PROC: 0DJD8ZZ Inspection of Lower Intestinal Tract, Via Natural or Artificial Opening Endoscopic (ICD-10-PCS; CPT 45378; principal; 2020-10-24 11:00)
DX: Z12.11 Encounter for screening for malignant neoplasm of colon (principal); D12.4 Benign neoplasm of descending colon; D12.7 Benign neoplasm of rectosigmoid junction; K63.5 Polyp of colon; K57.30 Diverticulosis of large intestine without perforation or abscess without bleeding; Z87.891 Personal history of nicotine dependence
CPT/HCPCS: 45385; 45381; 88305; J7120

== ENCOUNTER 2021-09-28 12:29 | Emergency (ER) | payer MEDICARE, MEDICAID, SELFPAY ==
--- NOTE | ~2021-09-28 | XR_ITS ---
EXAMINATION: XR hand LT min 3V DATE: 09/28/2021 13:04 INDICATION: Left hand injury. TECHNIQUE: 3 views of left hand were obtained. COMPARISON: Left hand radiographs 10/26/2016 FINDINGS: Bone alignment is normal. No fracture. There is mild osteoarthritis of first carpometacarpa l joint, second metacarpophalangeal joint, and many of the interphalangeal joints. There is moderate osteoarthritis of first interphalangeal joint. Bandage material overlies the hand. No radiopaque fore ign body. IMPRESSION: 1. No fracture or radiopaque foreign body. 2. Polyarticular osteoarthritis. Reviewed, dictated and finalized at location A.
[2021-09-28 12:36] VITALS: BP 127/85; PULSE 72; RESP 16; TEMP 36.6; O2SAT 99
[2021-09-28] MEDS: TETANUS,DIPHTHERIA,AC PERTUSSIS ADULT (0.5 ML) BOOSTRIX IM (12:51)
--- NOTE | 2021-09-28 13:31 | ED.WOUNDLAC ---
HPI - Wound/Laceration General Chief Complaint: Wound/Laceration Stated Complaint: hand injury Time Seen by Provider: 09/28/21 12:40 Source: patient Mode of arrival: ambulatory Limitations: no limitations History of Present Illness HPI narrative: This is a 71-year-old male that presents to the emergency department for lacerations to his left hand sustained just prior to arrival. Reports the blade on his lawnmower was not working. He attempted to use a stick to try to get the blade to go. The stick got sucked up in the blade and pulled his hand into the blade. Reports several lacerations to the left hand. He is not up-to-date on tetanus. Denies decreased range of motion or numbness. Related Data Allergies Allergy/AdvReac Type Severity Reaction Status Date / Time No Known Allergies Allergy Verified 10/24/20 09:50 Review of Systems Review of Systems: CONSTITUTIONAL: Denies fever SKIN: Reports laceration MUSCULOSKELETAL: Reports joint pain, and myalgia. NEUROLOGIC: Denies numbness All systems reviewed & are unremarkable except as noted in HPI and below PMFSH Past Medical History Medical History (Updated 09/28/21 @ 15:48 by Albertina Quintanilla PA-C) Anxiety Colon cancer screening Fissure, anal Needs assistance while at home Tubular adenoma Surgical History Surgical History No significant past surgical history Family History Family History Mother Diabetes mellitus Father Heart disease Sibling Cancer Social History Social History Smoking status: Former smoker Additional smoking assessment comments: PT UNSURE WHEN HE QUIT OR HOW LONG OR HOW MUCH Alcohol intake: never Substance use: never Substance use type: does not use Additional living arrangements comments: FRIEND MEÑO LIVES CLOSE AND HELPS OUT NEEDED BUT PT CAN LIVE ON HIS OWN Gender identity (if verbalized by the patient): Male Spiritual care concerns: No Exam Narrative: GENERAL: Well-appearing, well-nourished, and in no acute distress. HEAD: Normocephalic, atraumatic. EYES: EOMI. EXTREMITIES: Normal range of motion in the fingers. No edema. Several lacerations to the left hand. Left third finger with 2cm linear laceration into subcutaneous tissue. Left 5th finger with 2cm linear laceration into subcutaneous tissue. Large flap laceration at the base of the left thumb dorsal surface that is 5cm. There is not any tendon involvement. Normal radial pulses. Normal sensation SKIN: Warm, dry, no rash. NEURO: No focal deficits. Alert and oriented x3. PSYCH: Normal mood and affect Course Consultations Consultation #1: I spoke with Dr. Mohr about patient who will follow-up in clinic. Date: 09/28/21 Time: 15:00 Vital Signs Vital signs: Vital Signs Temperature 97.9 F 09/28/21 12:36 Pulse Rate 72 09/28/21 12:36 Respiratory Rate 16 09/28/21 12:36 Blood Pressure 127/85 09/28/21 12:36 Pulse Oximetry 99 09/28/21 12:36 Temperature 97.9 F 09/28/21 12:36 Pulse Rate 72 09/28/21 12:36 Respiratory Rate 16 09/28/21 12:36 Blood Pressure 127/85 09/28/21 12:36 Pulse Oximetry 99 09/28/21 12:36 Procedures Laceration Laceration 1: Date: 09/28/21 Time: 15:39 Site: hand Side (If applicable): left Size (cm): 5 Description: flap Depth: simple, single layer Local Anesthetic: lidocaine 1% Amount of anesthesia used (mL): 8 Pre-repair: irrigated ====== Skin Level ====== Skin layer closed with: nylon Size (cm): 4-0 Number of sutures: 20 Technique: simple, interrupted ====== Subcutaneous Layer ====== ====== Muscle Layer ====== ====== Tendon Layer ====== Laceration 2: Date: 09/28/21 Time: 15:41 Site: hand
[2021-09-28] MEDS: ceFAZolin SODIUM 1 GM VIAL IM (15:45)
[2021-09-28] MEDS: WATER, STERILE FOR INJECTION 10 ML VIAL XX (15:46)
[2021-09-28 16:00] VITALS: BP 139/76; PULSE 78; RESP 14; O2SAT 97
--- NOTE | 2021-10-05 17:39 | PC.NURSE ---
LATE ENTRY This note is being entered to document information to the patient's record. The following information was omitted on [09/28/21], by [deborah cruz ]. wound as described in previous charting, was on the left hand as suggested
== END 2021-09-28 16:05 | disposition home or self-care (01) ==
PROVIDERS: Emergency Provider Emergency Medicine; PCP Nurse Practitioner
DX: S61.412A Laceration without foreign body of left hand, initial encounter (principal); Z23 Encounter for immunization; Z87.891 Personal history of nicotine dependence; M18.9 Osteoarthritis of first carpometacarpal joint, unspecified; M19.042 Primary osteoarthritis, left hand; W28.XXXA Contact with powered lawn mower, initial encounter
CPT/HCPCS: 12004; 73130; 90471; 90715; 96372; 99283; J0690

== ENCOUNTER 2021-10-03 15:18 | Emergency (ER) | payer MEDICARE, MEDICAID, SELFPAY ==
[2021-10-03 15:30] VITALS: BP 146/78; PULSE 78; RESP 18; TEMP 36.7; O2SAT 98
--- NOTE | 2021-10-03 17:01 | ED.GENADULT ---
HPI - General Adult General Chief complaint: Wound/Laceration Stated complaint: lac Time Seen by Provider: 10/03/21 16:48 History of Present Illness HPI narrative: Patient is a 71-year-old male here for evaluation of a small amount of white discharge noted from his wound on his right hand today. Patient sustained a laceration from a lawnmower blade on 09/28, and was evaluated here in the ED and had multiple stitches placed. He was placed on Keflex and followed up with Dr. Mohr, plastic surgeon, 2 days ago. Patient finished the course of Keflex yesterday. He denies any fevers, chills, nausea, vomiting. He has not been taking anything for the pain. He is still able to move his fingers and his sensation is intact. Related Data Allergies Allergy/AdvReac Type Severity Reaction Status Date / Time No Known Allergies Allergy Verified 10/03/21 16:00 Review of Systems Review of Systems: Gen.: Denies fevers or chills Eyes: Denies eye pain or visual change ENT: Denies congestion Respiratory: Denies shortness of breath or cough CV: Denies chest pain or palpitations GI: Denies abdominal pain nausea, emesis or diarrhea denies burning, urgency, frequency or hematuria Musculoskeletal: Denies back pain or muscle pain Neuro: Denies numbness, tingling, weakness or focal weakness Skin: Reports white discharge from the wound. Denies rash Except as documented, all other systems reviewed and negative All systems reviewed & are unremarkable except as noted in HPI and below PMFSH Past Medical History Medical History Anxiety Colon cancer screening Fissure, anal Needs assistance while at home Tubular adenoma Surgical History Surgical History No significant past surgical history Family History Family History Mother Diabetes mellitus Father Heart disease Sibling Cancer Social History Social History Smoking status: Former smoker Additional smoking assessment comments: PT UNSURE WHEN HE QUIT OR HOW LONG OR HOW MUCH Alcohol intake: never Substance use: never Substance use type: does not use Additional living arrangements comments: FRIEND MEÑO LIVES CLOSE AND HELPS OUT NEEDED BUT PT CAN LIVE ON HIS OWN Gender identity (if verbalized by the patient): Male Spiritual care concerns: No Exam Narrative: Gen: Alert, oriented, no acute distress. Eyes: EOMI, no icterus Pulm: Respirations even and unlabored, symmetric thorax expansion, no audible stridor or visible cyanosis CV: Regular rate per telemetry GI: No distension, no voluntary/involuntary guarding Neuro: AOx4, moves all extremities without apparent difficulty or weakness, follows commands Skin: Right hand has numerous stitches in a C shape along the thumb. There is a small area in the interdigital region that is tender to palpation. There is a mild amount of surrounding cellulitis around the stitches. No purulent discharge expressed by my exam. Psych: Normal mood/affect, insight/judgement good, adequate fund of knowledge, recent/remote memory intact Course Vital Signs Vital signs: Vital Signs Temperature 98.1 F 10/03/21 15:30 Pulse Rate 78 10/03/21 15:30 Respiratory Rate 18 10/03/21 15:30 Blood Pressure 146/78 H 10/03/21 15:30 Pulse Oximetry 98 10/03/21 15:30 Temperature 97.9 F 10/03/21 18:04 Pulse Rate 66 10/03/21 18:04 Respiratory Rate 18 10/03/21 18:04 Blood Pressure 132/81 10/03/21 18:04 Pulse Oximetry 96 10/03/21 18:04 Medical Decision Making [facility] Narrative Medical decision making narrative: 71-year-old male here with some purulent drainage that he noted this morning to his wound on his right hand after finishing Keflex yesterday. No systemic symptoms, vital signs stable, wound w
[2021-10-03 18:04] VITALS: BP 132/81; PULSE 66; RESP 18; TEMP 36.6; O2SAT 96
== END 2021-10-03 18:06 | disposition home or self-care (01) ==
PROVIDERS: Emergency Provider Emergency Medicine; PCP Family Medicine
DX: L03.113 Cellulitis of right upper limb (principal)
CPT/HCPCS: 99283

== ENCOUNTER 2021-11-22 00:21 | Day surgery (SDC) | payer MEDICARE, MEDICAID, SELFPAY ==
[2021-11-07 12:43] VITALS: BMI 27.2
[2021-11-22 09:35] VITALS: BP 139/67; PULSE 63; RESP 18; TEMP 36.3; O2SAT 100; BMI 25.6
[2021-11-22] MEDS: LACTATED RINGERS 1,000 ML 150 ML IV CONT (09:51)
--- NOTE | 2021-11-22 10:07 | P.PNAN_ITS ---
Anes - Initial Pre Proc Eval Procedure: Operation Date: 11/22/21 10:30 Proposed Procedures p Screening Colonoscopy - Dipak Goldstein MD Date/Time: 11/22/21 10:07 Surgeon: Dipak Goldstein MD Pre Op Diagnosis: hx of colon polyps Patient Data Age: 71 Gender: M Height: 1.63 m Weight: 67.7 kg Last Vital Signs Temp 97.3 F L 11/22/21 09:35 Pulse 63 11/22/21 09:35 Resp 18 11/22/21 09:35 BP 139/67 11/22/21 09:35 Pulse Ox 100 11/22/21 09:35 O2 Del Method Room Air 11/22/21 09:35 Allergies Allergy/AdvReac Type Severity Reaction Status Date / Time No Known Allergies Allergy Verified 11/22/21 09:32 Patient hx anesthesia problems: none Family hx anesthesia problems: none Results Review: All pre-operative results and documents have been reviewed as part of the pre- operative evaluation. [facility] Past Medical History Medical History Anxiety Colon cancer screening Fissure, anal Needs assistance while at home Tubular adenoma Surgical History Surgical History No significant past surgical history Family History Family History Mother Diabetes mellitus Father Heart disease Sibling Cancer Social History Social History Smoking status: Former smoker Additional smoking assessment comments: patient poor historian and is unsure of smoking history dates or amounts Alcohol intake: never Substance use: never Substance use type: does not use Living arrangements: with family Additional living arrangements comments: FRIEND MEOÑ LIVES CLOSE AND HELPS OUT NEEDED BUT PT CAN LIVE ON HIS OWN Gender identity (if verbalized by the patient): Male Spiritual care concerns: No Anes - Eval Final PreProcedure Day of Procedure 11/22/21 10:07 Patient weight: normal Heart: regular rate and rhythm Lungs: clear to auscultation Airway: Mallampati scale class II Neurological: alert and oriented Last oral intake: >/= 8 hours ASA classification: II Emergent: no Anesthetic plan: proceed Anesthesia type and monitoring: general GIVS and standard monitoring Results Review: All pre-operative results and documents have been reviewed as part of the pre- operative evaluation. Informed Consent: The patient's anesthetic plan and its attendant risks and benefits were discussed with the patient/family/POA. Questions were solicited and answers provided to the satisfaction of the patient/family/POA.
--- NOTE | 2021-11-22 10:12 | PM.HPGS ---
History of Present Illness History of Present Illness Consent: Risks, benefits, and alternatives have been discussed and questions answered. Patient agrees to proceed with procedure. Chief complaint: hx of colon polyps Narrative: Cecilio Silverio is a 71 year old male with large TA polyp in rectosigmoid removed 1 year ago. Review of Systems Constitutional: Constitutional: Denies headache(s) and Denies weakness Eyes: Eyes: Denies blurry vision ENT: Reports Normal hearing present, Denies headache(s) and Denies neck pain Cardiovascular: Cardiovascular: Denies chest pain and Denies dyspnea Respiratory: Respiratory: Denies dyspnea Gastrointestinal: Gastrointestinal: Reports no additional gastrointestinal complaints Genitourinary: Genitourinary: Denies dysuria Musculoskeletal: Musculoskeletal: Denies neck pain Integumentary/Breasts: Skin/Breast: Denies dry skin Neurologic: Reports Normal hearing present, Denies headache(s) and Denies weakness Psychiatric: Psychiatric: Denies anxiety Endocrine: Endocrine: Denies change in body appearance Hematologic/Lymphatic: Hematologic/Lymphatic: Denies easy bleeding Allergic/Immunologic: Allergic/Immunologic: Denies urticaria PMFSH Past Medical History Medical History Anxiety Colon cancer screening Fissure, anal Needs assistance while at home Tubular adenoma Surgical History Surgical History No significant past surgical history Family History Family History Mother Diabetes mellitus Father Heart disease Sibling Cancer Social History Social History Smoking status: Former smoker Additional smoking assessment comments: patient poor historian and is unsure of smoking history dates or amounts Alcohol intake: never Substance use: never Substance use type: does not use Living arrangements: with family Additional living arrangements comments: FRIEND MEÑO LIVES CLOSE AND HELPS OUT NEEDED BUT PT CAN LIVE ON HIS OWN Gender identity (if verbalized by the patient): Male Spiritual care concerns: No Meds Home Medications and Allergies Allergies Allergy/AdvReac Type Severity Reaction Status Date / Time No Known Allergies Allergy Verified 11/22/21 09:32 Vital Signs Vital Signs - 24 hr 11/22/21 09:35 Temperature 97.3 F L Pulse Rate 63 Respiratory Rate 18 Blood Pressure 139/67 Pulse Oximetry 100 Oxygen Delivery Room Air Exam Const: General: comfortable and no acute distress HENMT: General nose exam: Normal nares present Eyes: General: appearance normal, both eyes and all related structures Neck: Neck: no JVD Resp: Auscultation: clear to auscultation bilaterally Cardio: Rate: regular rate Rhythm: regular rhythm GI: Inspection: non-distended GI Palp: Yes Soft to palpation Skin: General skin exam: normal color Neuro: General: gait normal Speech: normal speech Extrem: General: normal to inspection Psych: Mental Status: mental status grossly normal Assessment and Plan Assessment and plan (1) Tubular adenoma: Code(s): D36.9 - Benign neoplasm, unspecified site Status: Acute Assessment and Plan: colonoscopy
[2021-11-22 10:38] VITALS: BP 78/50; PULSE 74; RESP 17; O2SAT 95
[2021-11-22 10:48] VITALS: BP 85/56; PULSE 64; RESP 19; O2SAT 96
[2021-11-22 10:58] VITALS: BP 118/78; PULSE 65; RESP 21; O2SAT 100
== END 2021-11-22 11:16 | disposition home or self-care (01) ==
PROVIDERS: PCP Family Medicine; Visit Provider Internal Medicine Gastroenterology
PROC: 0DJD8ZZ Inspection of Lower Intestinal Tract, Via Natural or Artificial Opening Endoscopic (ICD-10-PCS; CPT 45378; principal; 2021-11-22 10:30)
DX: Z09 Encounter for follow-up examination after completed treatment for conditions other than malignant neoplasm (principal); D12.8 Benign neoplasm of rectum; K57.30 Diverticulosis of large intestine without perforation or abscess without bleeding; K64.8 Other hemorrhoids; Z87.891 Personal history of nicotine dependence
CPT/HCPCS: 45385; 88305; J2704; J7120

== ENCOUNTER 2022-10-13 20:13 | Emergency (ER) | payer MEDICARE, SELFPAY ==
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
--- NOTE | ~2022-10-13 | CT_ITS ---
CT Scan of the Chest without Contrast: Clinical Indication: Left rib pain Technique: Contiguous sections were acquired throughout the chest without intravenous contrast. Dose reduction technique was used on this scan by utilizing automated exposure control and iterative recon struction technique. The dose-length product (DLP) was 193.19 mGy-cm. Findings: There is no evidence of any significant mediastinal, hilar or axillary lymphadenopathy. The mediastin al soft tissues appear normal. There is no evidence of pleural or pericardial effusion. The lungs are clear, aside from minimal dependent atelectatic changes. Images through the upper abdomen reveal moderate hiatal hernia. No rib fracture identified. Impression: Moderate hiatal hernia, otherwise unremarkable exam. Reviewed, dictated and finalized at location . Impression: Moderate hiatal hernia, otherwise unremarkable exam.
[2022-10-13 20:32] VITALS: BP 155/108; PULSE 73; RESP 16; TEMP 37.1; O2SAT 98
[2022-10-14 00:34] VITALS: BP 164/83; PULSE 69; RESP 18; TEMP 36.6; O2SAT 99
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
[2022-10-14 01:58] VITALS: BP 151/79; PULSE 69; RESP 18; TEMP 37.2; O2SAT 99
[2022-10-14 02:43] VITALS: BP 148/79; PULSE 77; RESP 18; TEMP 36.6; O2SAT 99
--- NOTE | 2022-10-14 02:43 | PC.NURSE ---
Incentive spirometer given to pt. Pt educated on use and purpose of incentive spirometer. Pt stated understanding and demonstrated correctly on use of IS.
== END 2022-10-14 02:44 | disposition home or self-care (01) ==
PROVIDERS: Emergency Provider Physician Assistant; PCP Family Medicine
DX: S20.212A Contusion of left front wall of thorax, initial encounter (principal); Z87.891 Personal history of nicotine dependence; V84.5XXA Driver of special agricultural vehicle injured in nontraffic accident, initial encounter
CPT/HCPCS: 71046; 71100; 71250; 99284

== ENCOUNTER 2025-01-19 16:43 | Emergency (ER) | payer MEDICARE, MEDICAID, SELFPAY ==
--- NOTE | ~2025-01-19 | US_ITS ---
EXAMINATION: US venous doppler [facility] DATE: 01/19/2025 17:51 INDICATION: Bilateral lower limb swelling and erythema TECHNIQUE: Grayscale ultrasound images without and with compression and Doppler ultrasound images of the bilateral lower extremity veins were obtained. COMPARISON: None. FINDINGS: The visualized portions of right common femoral vein, profunda (deep) femoral vein, femoral vein, pop liteal vein, posterior tibial veins, peroneal veins, gastrocnemius vein and proximal to mid greater s aphenous vein are patent. The visualized portions of left common femoral vein, profunda femoral vein, femoral vein, popliteal v ein, posterior tibial veins, peroneal veins, gastrocnemius vein and proximal to mid greater saphenous vein are patent. IMPRESSION: 1. No deep venous thrombosis in either lower limb. Reviewed, dictated and finalized at location A.
[2025-01-19 17:12] VITALS: BP 135/74; PULSE 95; RESP 16; TEMP 36.8; O2SAT 96
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
[2025-01-19 17:29] LABS: Hematocrit 42.8 % (42.0-52.0); Hemoglobin 14.1 g/dL (14.0-18.0); Immature Granulocyte Percent A 0.3 % (0-0.5); Lymphocytes Absolute Auto 2.21 K/mm3 (0.9-3.2); Mean Corpuscular HGB Conc 32.9 g/dl (32-36); Mean Corpuscular Hemoglobin 31.6 pg (26-34); Mean Corpuscular Volume 96.0 fl (80-100); Nucleated Red Blood Cells Absolute Auto 0.000 K/mm3 (0.0-0.012); Nucleated Red Blood Cells Perc 0.0 % (0.0-0.2); Platelet Count Result 378 k/mm3 (150-375); Red Blood Count 4.46 M/mm3 (4.6-6.20); White Blood Count 8.9 K/mm3 (4.5-10.0)
[2025-01-19 17:38] LABS: INR 1.0; Prothrombin Time 13.4 Seconds (11.1-14.7)
[2025-01-19 17:39] LABS: Anion Gap 9 mmol/L (4-12); Blood Urea Nitrogen 21 mg/dL (9-20); Calcium 9.0 mg/dL (8.4-10.2); Carbon Dioxide 23 mmol/L (22-30); Chloride 107 mmol/L (98-107); Estimated CRCL calculation 42 ml/min; Estimated Glomerular Filt Rate 53; Glucose 98 mg/dL (65-110); Partial Thromboplastin Time 25.1 Seconds (22.3-36.8); Potassium 4.2 mmol/L (3.4-5.0); Sodium 139 mmol/L (137-145)
[2025-01-19] MEDS: CEPHALEXIN 500 MG CAPSULE PO (20:20)
[2025-01-19 20:36] VITALS: BP 139/76; PULSE 86; RESP 16; TEMP 37.1; O2SAT 98
== END 2025-01-19 20:38 | disposition home or self-care (01) ==
LOC: ANHED 20:15
PROVIDERS: Physician Assistant; Emergency Provider Student in an Organized Health Care Education/Training Program; PCP Family Medicine
DX: L03.116 Cellulitis of left lower limb (principal); N17.9 Acute kidney failure, unspecified; Z87.891 Personal history of nicotine dependence
CPT/HCPCS: 36415; 80048; 85025; 85610; 85730; 93970; 99284; A9270